=== PATIENT | female | born 1970 | race Asian ===

== ENCOUNTER 2016-11-18 10:32 | Day surgery (SDC) | payer MEDICAID ==
[~2016-11-18] VITALS: Ht 165.1 cm; Wt 61.5 kg
[2016-11-18] MEDS ORDERED: none per pt (11:06)
[2016-11-18 11:07] VITALS: BP 95/64
[2016-11-18] MEDS ORDERED: SODIUM CHLORIDE 0.9% 1,000 ML IV SCH (11:21)
[2016-11-18] MEDS ORDERED: SODIUM BICARBONATE 4.2%, 5ML ONE (11:46)
[2016-11-18] MEDS ORDERED: LIDOCAINE 1%, 20ML ONE (11:46)
[2016-11-18] MEDS ORDERED: FENTANYL PF 100 MCG/2ML ONE (12:11)
[2016-11-18] MEDS ORDERED: NALOXONE 1 MG/ML, 2ML ONE (12:11)
[2016-11-18] MEDS ORDERED: FLUMAZENIL 0.1 MG/1 ML, 5ML ONE (12:11)
[2016-11-18] MEDS ORDERED: MIDAZOLAM 1 MG/ML, 5ML ONE (12:11)
== END 2016-11-18 15:00 | disposition home or self-care (01) ==
LOC: OUT 10:32
PROVIDERS: ATTEND Internal Medicine Gastroenterology
DX: B18.1 Chronic viral hepatitis B without delta-agent (principal); K76.0 Fatty (change of) liver, not elsewhere classified; B20 Human immunodeficiency virus [HIV] disease; Z87.19 Personal history of other diseases of the digestive system
CPT/HCPCS: 36415; 47000; 76942; 85610; 88307; 88313; 99156; 99157; J2250; J3010; J3490; J7030; J2310